=== PATIENT | male | born 1960 | race Caucasian/White ===

== ENCOUNTER 2016-05-18 06:34 | Emergency (ER) | payer BC ==
[2016-05-18] MEDS ORDERED: IOPAMIDOL-300 100 ML VIAL IVP ONE (08:01)
[2016-05-18] MEDS ORDERED: DEXAMETHASONE 10 MG/ML VIAL IVP STA (12:28)
[2016-05-18] MEDS ORDERED: DEXAMETHASONE 10 MG/ML VIAL ONE (12:30)
== END 2016-05-18 12:51 | disposition home or self-care (01) ==
DX: K70.10 Alcoholic hepatitis without ascites (principal); R05 Cough; M54.9 Dorsalgia, unspecified
CPT/HCPCS: 36415; 74177; 76705; 80053; 80074; 81001; 83690; 85025; 87086; 96374; 99284; Q9967

== ENCOUNTER 2016-05-26 08:58 | Outpatient (CLI) | payer BC | END 2016-05-26 08:59 | disposition home or self-care (01) | DX: G47.33 Obstructive sleep apnea (adult) (pediatric) (principal) ==

== ENCOUNTER 2016-07-04 09:49 | Outpatient (CLI) | payer OTHER, BC | END 2016-07-04 09:50 | disposition home or self-care (01) | DX: M19.011 Primary osteoarthritis, right shoulder (principal); M87.9 Osteonecrosis, unspecified; M62.511 Muscle wasting and atrophy, not elsewhere classified, right shoulder; M25.511 Pain in right shoulder; M75.100 Unspecified rotator cuff tear or rupture of unspecified shoulder, not specified as traumatic ==

== ENCOUNTER 2016-10-03 07:10 | Outpatient (CLI) | payer BC, OTHER ==
[2016-10-03] MEDS ORDERED: IOPAMIDOL-300 50 ML VIAL PO ONE (08:30)
[2016-10-03] MEDS ORDERED: IOPAMIDOL-300 100 ML VIAL IVP ONE (08:30)
--- NOTE | 2016-10-03 12:41 | CT Report ---
CT ABDOMEN AND PELVIS WITH CONTRAST: 10/03/2016 CLINICAL INDICATION: Jaundice, enlarged liver. TECHNIQUE: Axial CT images of the abdomen and pelvis were obtained with 100 mL Isovue-300 intravenou sly as well as oral contrast. In accordance with CT protocol optimization, one or more of the following dose reduction techniques w ere utilized for this exam: automated exposure control, adjustment of mA and/or KV based on patient size, or use of iterative reconstructive technique. COMPARISON: 05/18/2016 FINDINGS: The liver is enlarged and heterogeneous, with a nodular contour, compatible with cirrhosis . It measures 22 cm craniocaudal. The gallbladder is not dilated. There is recanalization of a col lateral vein in the anterior abdominal wall, which drains through the hypogastric into the right comm on femoral vein. No gastric varices are seen. No splenomegaly is present. The kidneys, spleen, moise creas, and adrenal glands are unremarkable. No bowel dilatation, free gas, or free fluid is present. No abdominal adenopathy is seen. Pelvis: The appendix is seen in the right lower quadrant, and is normal in caliber. Trace free flui d is present in the pelvis. No pelvic adenopathy is seen. Osseous structures demonstrate degenerative changes. IMPRESSION: CIRRHOSIS, WITH PORTAL HYPERTENSION. JOB #: [id number] EXT JOB #:[id number]
== END 2016-10-03 07:11 | disposition home or self-care (01) ==
LOC: DI 07:10
PROVIDERS: ATTEND Family Medicine
DX: K70.30 Alcoholic cirrhosis of liver without ascites (principal); K76.6 Portal hypertension
CPT/HCPCS: 74177; Q9967

== ENCOUNTER 2017-01-26 10:33 | Outpatient (CLI) | payer BC | END 2017-01-26 10:34 | disposition home or self-care (01) | LOC: LAB 10:33 | PROVIDERS: ATTEND Physician Assistant Medical | DX: K70.30 Alcoholic cirrhosis of liver without ascites (principal) | CPT/HCPCS: 36415; 82140 ==

== ENCOUNTER 2017-04-22 13:14 | Emergency (ER) | payer BC ==
[2017-04-22] MEDS ORDERED: HYDROmorphone 1 MG/ML SYRINGE IM STA (13:56)
[2017-04-22 15:10] LABS: CALCIUM 8.3 mg/dL (8.5-10.3); CREATININE 0.3 mg/dL (0.6-1.2); MAGNESIUM 1.8 mg/dL (1.7-2.8)
--- NOTE | 2017-04-22 15:16 | ED Physician Documentation ---
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 now with high MELD score and being placed on transplant list LLE pain 2 days ago and again today no injury pain to lat and posterior calf severe no redness or fever no CP or SOA Review of Systems Constitutional: denies: Fever Cardiac: denies: Chest pain / pressure Respiratory: denies: Dyspnea Musculoskeletal: reports: Extremity pain Endocrine: reports: Easy bruising / bleeding (INR 2+ 2/2 liver dz) Immunocompromised: denies: Immunocompromised PD PAST MEDICAL HISTORY - Past Medical History Past Medical History: Yes Cardiovascular: None Respiratory: Other Endocrine/Autoimmune: None GI: Cirrhosis, Other : Nocturia HEENT: None Psych: None Musculoskeletal: None Derm: None - Past Surgical History Past Surgical History: No General: Colonoscopy, Other - Present Medications Home Medications: Ambulatory Orders Medication Instructions Recorded Confirmed Furosemide 20 mg PO DAILY 04/22/17 04/22/17 Lactulose 30 ml PO TID 04/22/17 04/22/17 Ondansetron [Ondansetron Odt] 4 mg PO Q6HR PRN 04/22/17 04/22/17 Spironolactone 25 mg PO BID 04/22/17 04/22/17 oxyCODONE [Roxicodone] 5 mg PO Q4-6H #6 tablet 04/22/17 - Allergies Allergies/Adverse Reactions: Allergies Allergy/AdvReac Type Severity Reaction Status Date / Time No Known Drug Allergies Allergy Verified 05/18/16 06:41 - Social History Does the pt smoke?: No Smoking Status: Never smoker Does the pt drink ETOH?: No Does the pt have substance abuse?: No - Immunizations Immunizations are current?: No Immunizations: TDAP >10years/unknown - POLST Patient has POLST: No PD ED PE NORMAL - Vitals Vital signs reviewed: Yes - Neck Neck: Supple, no meningeal sign - Cardiac Cardiac: RRR - Respiratory Respiratory: No respiratory distress, Clear bilaterally - Extremities Extremities: Other (L calf slightly discolored/paler lateral aspect, extremely TTP even with light touch, no cord, no ankel or foot pain, strong pedal and ant tib pulses, foot warm, MSV intcatc, cmpt feel soft) Results - Vitals Vitals: Vital Signs - 24 hr 04/22/17 04/22/17 04/22/17 13:20 14:40 14:56 Temperature 36.7 C 36.8 C Heart Rate 89 72 70 Respiratory 18 15 18 Rate Blood Pressure 112/73 118/68 O2 Saturation 98 95 96 04/22/17 16:27 Temperature Heart Rate 88 Respiratory 16 Rate Blood Pressure 109/84 H O2 Saturation 98 Oxygen O2 Source Room air - Labs Labs: Laboratory Tests 04/22/17 14:45 Sodium 129 L Potassium 4.0 Chloride 101 Carbon Dioxide 23 Anion Gap 5.0 L BUN 8 Creatinine 0.3 L Estimated GFR (MDRD) 309 Glucose 111 H Calcium 8.3 L Magnesium 1.8 Total Creatine Kinase 89 PD MEDICAL DECISION MAKING - ED course ED course: does not look infected - not red or warm no subcut air on xray either not c/w ischemia as distal ankle and foot no pain strong pulses warm doubt cmpt syndrome and cmpts are soft to palpate and MSV to foot nl CK so doubt myositis and neg doppler rules out DVT given elev INR of 2.6 2/2 liver dz perhaps he has some hemaotma in the mm cauding pain after pain meds and work up rechecked pt, much better, nl color to sking, minimally TTP will dc with limited # pain meds, wrote a note to ride the transport cart at the airport as needed and PMD/ortho fup if not better Departure - Departure Disposition: 01 Home, Self Care Clinical Impression: Pain of lower extremity Qualifiers: Laterality: left Qualified Code(s): M79.605 - Pain in left leg Condition: Good Follow-Up: Sampson Dc MD [Primary Care Provider] - Prescriptions: oxyCODONE [Roxicodone] 5 mg PO Q4-6H #6 tablet Comments: Based on your history exam and test results it does not seem you have a venous or arterial blockage, an infection, or compartment syndrome. The pain could be from muscle spasm or perhaps you had some bleeding into your muscle because your INR is high from your liver disease And you are feeling better So I think it is safe for you to go see family for the holidays Recommend using an HUANG wrap, applying ice, and elevating the leg as often as possible. I also wrote you a note to use the transport cart at the airport Please follow up with Dr Dc when you return If you get worse while you are travelling go to an urgent care or ER Forms: Activity restrictions
--- NOTE | 2017-04-22 15:41 | Ultrasound Report ---
EXAM: LEFT LEG VENOUS DUPLEX: 04/22/2017 CLINICAL INDICATION: Severe pain and discoloration. TECHNIQUE: Real-time sonographic vascular imaging was performed by the loss control representative through the left lower extremity utilizing both color flow and Doppler spectral analysis. Multiple loss control representative static images were saved for review. FINDINGS: A left lower extremity venous sonogram is performed revealing the common femoral, superficial femoral, profunda femoris, and popliteal veins to be adequately visualized without intraluminal defects. There is normal venous compression, augmentation, phasicity, and spontaneity of venous flow. In the calf, the visualized more cephalad portions of posterior tibial and peroneal veins are grossly compressible, without filling defects. IMPRESSION: NO EVIDENCE OF DEEP VENOUS THROMBOSIS. MD MICHELE Flores/WILLIAM TD: 04/22/2017 15:34 MTDD
--- NOTE | 2017-04-22 16:27 | XRAY Preliminary Report ---
Exam: XR TIB/FIB LT IMPRESSION: Negative left tibia/fibula. [facility] SITE ID: [id number]
--- NOTE | 2017-04-22 16:29 | XRAY Report ---
EXAM: LEFT TIBIA/FIBULA RADIOGRAPHY EXAM DATE: 04/22/2017 04:21 PM. CLINICAL HISTORY: Severe pain. COMPARISON: None. TECHNIQUE: 2 views. FINDINGS: Bones: Normal. No fracture or bone lesion. Joints: The visualized knee and ankle joints are normal. No effusions. Soft Tissues: Normal. No soft tissue swelling. IMPRESSION: Negative left tibia/fibula. [facility] Referring Provider Line: [phone] SITE ID: [id number]
[2017-04-22 17:28] VITALS: BP 127/57
== END 2017-04-22 17:29 | disposition home or self-care (01) ==
LOC: ED 13:14
DX: M79.662 Pain in left lower leg (principal); K74.60 Unspecified cirrhosis of liver
CPT/HCPCS: 36415; 73590; 80048; 82550; 83735; 93971; 96372; 99283; J1170

== ENCOUNTER 2017-08-12 20:56 | Emergency (ER) | payer BC ==
--- NOTE | 2017-08-12 21:29 | ED Physician Documentation ---
PD HPI ABD PAIN - Stated complaint Stated Complaint: ABD PAIN - Chief complaint Chief Complaint: Abd Pain - History obtained from History obtained from: Patient, Family - History of Present Illness Timing - onset: How many days ago (2) Timing - details: Gradual onset, Still present Quality: Aching, Sharp Location: LUQ Worsened by: Palpation Associated symptoms: No: Nausea, Vomiting, Chest pain Recently seen: Emergency Dept - Additional information Additional information: Patient is a 56 year old male with a history of cirrhosis secondary to alcoholism. Patient was on the transplant list but relapsed and is currently in a sobriety period. patient was diagnosed about a week ago with pneumonia for which he was treated with doxycycline. patient has continued to cough. Family reports that for the last few days he has had left upper quadrant pain and is worried that it might be his spleen. Review of Systems Constitutional: denies: Fever, Chills Eyes: reports: Reviewed and negative Ears: reports: Reviewed and negative Nose: reports: Reviewed and negative Throat: reports: Reviewed and negative Cardiac: denies: Chest pain / pressure, Palpitations Respiratory: reports: Dyspnea, Cough GI: reports: Abdominal Pain. denies: Nausea, Vomiting, Diarrhea : denies: Dysuria, Frequency Skin: reports: Rash Musculoskeletal: denies: Neck pain, Back pain Neurologic: reports: Generalized weakness. denies: Focal weakness, Numbness PD PAST MEDICAL HISTORY - Past Medical History Cardiovascular: None Respiratory: Other Endocrine/Autoimmune: None GI: Cirrhosis, Other : Nocturia HEENT: None Psych: None Musculoskeletal: None Derm: None - Past Surgical History Past Surgical History: No General: Colonoscopy, Other - Present Medications Home Medications: Ambulatory Orders Medication Instructions Recorded Confirmed Furosemide 20 mg PO DAILY 04/22/17 04/22/17 Lactulose 30 ml PO TID 04/22/17 04/22/17 Ondansetron [Ondansetron Odt] 4 mg PO Q6HR PRN 04/22/17 04/22/17 Spironolactone 25 mg PO BID 04/22/17 04/22/17 oxyCODONE [Roxicodone] 5 mg PO Q4-6H #6 tablet 04/22/17 Benzonatate [Tessalon] 100 mg PO TID #20 capsule 08/12/17 Lidocaine Patch 5% [Lidoderm Patch] 1 each TOP DAILY #10 patch 08/12/17 - Allergies Allergies/Adverse Reactions: Allergies Allergy/AdvReac Type Severity Reaction Status Date / Time No Known Drug Allergies Allergy Verified 05/18/16 06:41 - Social History Does the pt smoke?: No Smoking Status: Never smoker Does the pt drink ETOH?: No Does the pt have substance abuse?: No - Immunizations Immunizations are current?: No Immunizations: TDAP >10years/unknown - POLST Patient has POLST: No PD ED PE NORMAL - Vitals Vital signs reviewed: Yes - General General: Alert and oriented X 3 - HEENT HEENT: Atraumatic - Cardiac Cardiac: RRR, No murmur - Derm Derm: No rash - Neuro Neuro: Alert and oriented X 3, No motor deficit, Normal speech Eye Opening: Spontaneous - Psych Psych: Normal mood PD ED PE EXPANDED - HEENT HEENT: Dry mucous membranes - Eyes Eyes: Scleral icterus - Cardiac Cardiac: JVD present - Abdomen Abdomen: Tender to palpation, LUQ. No: Rebound, Guarding - Extremities Extremities: Right foot (petechia on bilateral lower extremities), Left foot Results - Vitals Vitals: Vital Signs - 24 hr 08/12/17 08/12/17 08/12/17 21:04 22:17 22:46 Temperature 37.1 C Heart Rate 88 82 88 Respiratory 20 18 18 Rate Blood Pressure 133/74 H 126/69 124/70 O2 Saturation 98 97 98 Oxygen O2 Source Room air - Labs Labs: Laboratory Tests 08/12/17 08/12/17 08/12/17 21:22 21:22 21:56 WBC 6.8 RBC 3.01 L Hgb 11.3 L Hct 32.8 L MCV 108.9 H MCH 37.6 H MCHC 34.5 RDW 14.7 Plt Count 104 L MPV 7.1 L Neut # 3.8 Lymph # 1.6 [place] # 1.0 Eos # 0.2 Baso # 0.1 Absolute Nucleated RBC 0.00 Nucleated RBC % 0.0 Platelet Estimate NORMAL (130-450,000) Platelet Morphology NORMAL APPEARANCE PT INR APTT Sodium 134 L Potassium 3.8 Chloride 98 L Carbon Dioxide 29 Anion Gap 7.0 BUN 6 Creatinine 0.7 Estimated GFR (MDRD) 116 Glucose 116 H Lactic Acid 2.7 H Calcium 8.3 L Total Bilirubin 6.3 H Direct Bilirubin 2.4 H AST 78 H ALT 32 Alkaline Phosphatase 197 H Total Protein 6.6 L Albumin 2.7 L Globulin 3.9 Albumin/Globulin Ratio 0.7 L Lipase 18 L 08/12/17 21:56 WBC RBC Hgb Hct MCV MCH MCHC RDW Plt Count MPV Neut # Lymph # [place] # Eos # Baso # Absolute Nucleated RBC Nucleated RBC % Platelet Estimate Platelet Morphology PT 26.8 H INR 2.5 H APTT 51.2 H Sodium Potassium Chloride Carbon Dioxide Anion Gap BUN Creatinine Estimated GFR (MDRD) Glucose Lactic Acid Calcium Total Bilirubin Direct Bilirubin AST ALT Alkaline Phosphatase Total Protein Albumin Globulin Albumin/Globulin Ratio Lipase - Rads (name of study) ct abd pelvis Radiology: Final report received, See rad report (effusion, no infectious source , no obstruction) PD MEDICAL DECISION MAKING - ED course Complexity details: reviewed old records, reviewed results, re-evaluated patient , considered differential, d/w patient, d/w family ED course: Patient was seen and examined at bedside. IV access was gained and labs were drawn. Imaging was ordered. Patient stated that he did not want any pain medication at this time. Patient's labs were not too far patient's baseline and the results were reviewed with the patient's . patient's meld score was 26. Patient's score has ranged anywhere from 24-[address] abdomen and pelvis showed ascites but no other acute changes. Family was aware of the ascites. while SBP was considered was unlikely. Patient had no elevated wbc, no fever and the pain was localized to the left upper quadrant and was only present with the patient coughed. Patient was treated with tessalon and lidoderm patch. Patient required no further work up and was stable for discharge with outpatient follow up. Departure - Departure Disposition: 01 Home, Self Care Clinical Impression: Strain of abdominal muscle Condition: Good Instructions: ED Strain Abdominal Muscle Follow-Up: Sampson Dc MD [Primary Care Provider] - Prescriptions: Benzonatate [Tessalon] 100 mg PO TID #20 capsule Lidocaine Patch 5% [Lidoderm Patch] 1 each TOP DAILY #10 patch Comments: Your diagnostics today, although not normal are not too far off your baseline. Your pain is likely secondary from all of the coughing. You have been prescribed a cough medicine and lidoderm patches to help with the pain. You should follow up with doctor as planned. You can return to the emergency department for fevers, chills, vomiting, new worseing or uncontrollable symptoms. Discharge Date/Time: 08/12/17 23:07
[2017-08-12 21:48] LABS: ALBUMIN 2.7 g/dL (3.2-5.5); ALBUMIN/GLOBULIN RATIO 0.7 (1.0-2.2); BILIRUBIN,DIRECT 2.4 mg/dL (0.1-0.5); BILIRUBIN,TOTAL 6.3 mg/dL (0.2-1.0); CALCIUM 8.3 mg/dL (8.5-10.3); CREATININE 0.7 mg/dL (0.6-1.2); TOTAL PROTEIN 6.6 g/dL (6.7-8.2)
[2017-08-12] MEDS ORDERED: IOPAMIDOL-300 100 ML VIAL ONE (21:49)
[2017-08-12] MEDS ORDERED: SODIUM CHLORIDE 0.9% 1,000 ML IV ONE (22:04)
[2017-08-12 22:10] LABS: INR 2.5 (0.8-1.2); PT - PROTHROMBIN TIME 26.8 secs (9.9-12.6)
[2017-08-12] MEDS ORDERED: IOPAMIDOL-300 100 ML VIAL IVP ONE (22:14)
--- NOTE | 2017-08-12 22:14 | XRAY Report ---
EXAM: CHEST RADIOGRAPHY EXAM DATE: 08/12/2017 10:05 PM. CLINICAL HISTORY: Cough, recent pneumonia. COMPARISON: None. TECHNIQUE: 2 views. FINDINGS: Lungs/Pleura: No focal opacities evident. No pleural effusion. No pneumothorax. Normal volumes. Mediastinum: Heart and mediastinal contours are unremarkable. Other: None. IMPRESSION: Normal 2-view chest radiography. [facility] Referring Provider Line: [phone] SITE ID: [id number]
[2017-08-12 22:17] LABS: BASOPHILS # (AUTO) 0.1 10^3/uL (0.0-0.1); BASOPHILS % (AUTO) 1.3 %; EOSINOPHILS # (AUTO) 0.2 10^3/uL (0.0-0.7); EOSINOPHILS % (AUTO) 3.6 %; HGB - HEMOGLOBIN 11.3 g/dL (14.0-18.0); LYMPHOCYTES # (AUTO) 1.6 10^3/uL (1.5-3.5); LYMPHOCYTES % (AUTO) 24.3 %; MEAN CORPUSCULAR HEMOGLOBIN 37.6 pg (27.0-31.0); MEAN CORPUSCULAR HGB CONC 34.5 g/dL (32.0-36.0); MEAN CORPUSCULAR VOLUME 108.9 fL (80.0-94.0); MEAN PLATELET VOLUME 7.1 fL (7.4-11.4); NEUTROPHILS # (AUTO) 3.8 10^3/uL (1.5-6.6); NEUTROPHILS % (AUTO) 56.8 %; PLT - PLATELET COUNT 104 10^3/uL (130-450); RED BLOOD COUNT 3.01 10^6/uL (4.70-6.10); RED CELL DISTRIBUTION WIDTH 14.7 % (12.0-15.0); WHITE BLOOD COUNT 6.8 x10^3/uL (4.8-10.8)
[2017-08-12 22:18] LABS: PLATELET ESTIMATE, MANUAL NORMAL (130-450,000) (NORMAL); PLATELET MORPHOLOGY NORMAL APPEARANCE (NORMAL)
--- NOTE | 2017-08-12 22:31 | CT Preliminary Report ---
Exam: CT ABDOMEN/PELVIS W/ IMPRESSION: 1. New moderate amount of ascites in the abdomen and pelvis. 2. Liver cirrhosis. Varices. 3. Tiny right pleural effusion. 4. Otherwise, see above. [facility] SITE ID: [id number]
--- NOTE | 2017-08-12 22:36 | CT Report ---
EXAM: CT ABDOMEN AND PELVIS EXAM DATE: 08/12/2017 10:15 PM. CLINICAL HISTORY: Left upper quadrant pain. COMPARISONS: CT abdomen and pelvis 11/02/2016. TECHNIQUE: Routine helical CT imaging was performed through the abdomen and pelvis. IV contrast: 100 mL Isovue 300. Enteric contrast: No. Reconstructions: Coronal and sagittal. In accordance with CT protocol optimization, one or more of the following dose reduction techniques w ere utilized for this exam: automated exposure control, adjustment of mA and/or KV based on patient s ize, or use of iterative reconstructive technique. FINDINGS: Mild bibasilar probable atelectasis. Very small right pleural effusion is new. Irregular contour of the liver especially at the left hepatic lobe consistent with cirrhosis. New hyp odensity too small to fully characterize seen at the liver dome measuring 6 mm, appears new. There is a new low-density mass at the lateral segment left hepatic lobe, low Hounsfield units of 10 with arlette earance most suggestive for a cyst, measures 1.7 cm and this is new compared to the prior. A few othe r small nonspecific low densities are seen in the liver, too small to fully characterize. Mild diffus e heterogeneous liver echotexture. Enlarged left portal vein and recanalized umbilical vein with ante rior abdominal varices. The gallbladder is contracted. No bile duct dilatation. Pancreas: Atrophic. Spleen: Unremarkable. Adrenals: Unremarkable. Kidneys: Unremarkable. Bowel: New moderate amount of ascites in the abdomen and pelvis. No evidence for bowel obstruction. A nterior abdominal and abdominal wall varices again noted. Pelvis: The bladder and remaining pelvic organs appear unremarkable. Bones: No acute bone findings. IMPRESSION: 1. New moderate amount of ascites in the abdomen and pelvis. 2. Liver cirrhosis. Varices. 3. Tiny right pleural effusion. 4. Otherwise, see above. [facility] Referring Provider Line: [phone] SITE ID: [id number]
[2017-08-12] MEDS ORDERED: BENZONATATE 100 MG CAPSULE PO STA (22:38)
[2017-08-12 22:47] VITALS: BP 124/70
[2017-08-12] MEDS ORDERED: LIDOCAINE PATCH 5% TOP STA (22:52)
== END 2017-08-12 23:07 | disposition home or self-care (01) ==
LOC: ED 20:56
DX: S39.011A Strain of muscle, fascia and tendon of abdomen, initial encounter (principal); X58.XXXA Exposure to other specified factors, initial encounter; R05 Cough
CPT/HCPCS: 36415; 71046; 74177; 80053; 82248; 83605; 83690; 85025; 85610; 85730; 87040; 96360; 99283; A9270; Q9967

== ENCOUNTER 2017-09-25 09:13 | Outpatient (CLI) | payer BC ==
--- NOTE | 2017-09-25 10:11 | XRAY Report ---
TWO VIEW CHEST: 09/25/2017 CLINICAL INDICATION: Cough. COMPARISON: 08/12/2017. FINDINGS: Frontal and lateral views of the chest demonstrate a normal cardiac silhouette. The lungs remain clear. No effusion or pneumothorax is present. IMPRESSION: NORMAL CHEST. NO SIGNIFICANT INTERVAL CHANGE FROM 08/12/2017. TD: 09/25/2017 09:56
[2017-09-25 11:35] LABS: INR 2.3 (0.8-1.2)
[2017-09-25 11:41] LABS: CALCIUM 8.4 mg/dL (8.5-10.3); CREATININE 0.6 mg/dL (0.6-1.2)
[2017-09-25 11:52] LABS: BILIRUBIN,URINE NEGATIVE (NEGATIVE); GLUCOSE, URINE (UA) NEGATIVE (NEGATIVE); KETONES,URINE (UA) NEGATIVE (NEGATIVE); LEUKOCYTE ESTERASE, URINE NEGATIVE (NEGATIVE); NITRITE,URINE NEGATIVE (NEGATIVE); OCCULT BLOOD,URINE SMALL (NEGATIVE); PH,URINE 5.5 PH (5.0-7.5); PROTEIN,URINE NEGATIVE (NEGATIVE); UROBILINOGEN,URINE 0.2 (NORMAL) E.U./dL (NORMAL)
[2017-09-25 11:54] LABS: CLARITY,URINE CLEAR (CLEAR)
== END 2017-09-25 09:14 | disposition home or self-care (01) ==
LOC: DI 09:13
PROVIDERS: ATTEND Specialist
DX: J18.9 Pneumonia, unspecified organism (principal); K70.30 Alcoholic cirrhosis of liver without ascites; K72.90 Hepatic failure, unspecified without coma
CPT/HCPCS: 36415; 71046; 80048; 81003; 82140; 85610; 85730

== ENCOUNTER 2017-09-29 08:04 | Outpatient (CLI) | payer BC | END 2017-09-29 08:05 | disposition critical access hospital (66) | LOC: EMS 08:04 | PROVIDERS: ATTEND Surgery | DX: R52 Pain, unspecified (principal); R06.00 Dyspnea, unspecified; R05 Cough | CPT/HCPCS: A0425; A0429 ==

== ENCOUNTER 2017-09-29 08:18 | Emergency (ER) | payer BC ==
[2017-09-29] MEDS ORDERED: MORPHINE 2 MG/ML SYRINGE IVP STA ×2 (09:05→10:25)
--- NOTE | 2017-09-29 09:14 | ED Physician Documentation ---
History of Present Illness - Stated complaint Stated Complaint: PAIN - Chief complaint Chief Complaint: General - Additonal information Additional information: hx from pt and 56 male prior EtOH now with cirrhosis and end stage liver dz can go on transplant list in December of narcotic and EtOH sobriety and counseling has chronic abd pain and ascites now with fluid in lungs and edema and a cough which is worsening the abd pain felt cold last night but no fevers reported his PMD recently increased his spironolactone and lasix he does not want to be on the transplant list benny more he wants his pain controlled and to be on hospice he is DNR told nurse pt has been voicing suicidal ideations Review of Systems Constitutional: reports: Chills. denies: Fever Cardiac: denies: Chest pain / pressure Respiratory: reports: Dyspnea, Cough GI: reports: Abdominal Pain. denies: Nausea, Vomiting Musculoskeletal: reports: Extremity swelling Neurologic: reports: Generalized weakness Endocrine: reports: Easy bruising / bleeding (INR high and last plt count 88) PD PAST MEDICAL HISTORY - Past Medical History Cardiovascular: None Respiratory: Other Endocrine/Autoimmune: None GI: Cirrhosis, Other : Nocturia HEENT: None Psych: Depression, Other Musculoskeletal: None Derm: None Other Past Medical History: 09/29/17 - feels SI - Past Surgical History Past Surgical History: No General: Colonoscopy, Other - Present Medications Home Medications: Ambulatory Orders Medication Instructions Recorded Confirmed Furosemide 20 mg PO DAILY 04/22/17 04/22/17 Lactulose 30 ml PO TID 04/22/17 04/22/17 Ondansetron [Ondansetron Odt] 4 mg PO Q6HR PRN 04/22/17 04/22/17 Spironolactone 25 mg PO BID 04/22/17 04/22/17 oxyCODONE [Roxicodone] 5 mg PO Q4-6H #6 tablet 04/22/17 Benzonatate [Tessalon] 100 mg PO TID #20 capsule 08/12/17 Lidocaine Patch 5% [Lidoderm Patch] 1 each TOP DAILY #10 patch 08/12/17 Doxycycline Hyclate 100 mg PO BID #20 capsule 09/29/17 guaiFENesin/DEXTROMETHORPHAN 10 ml PO Q6H PRN #120 ml 09/29/17 [Robitussin Dm] oxyCODONE [Roxicodone] 5 mg PO Q6H PRN #20 tablet 09/29/17 - Allergies Allergies/Adverse Reactions: Allergies Allergy/AdvReac Type Severity Reaction Status Date / Time No Known Drug Allergies Allergy Verified 05/18/16 06:41 - Social History Does the pt smoke?: No Smoking Status: Never smoker Does the pt drink ETOH?: No Does the pt have substance abuse?: No - Immunizations Immunizations are current?: No Immunizations: TDAP >10years/unknown - POLST Patient has POLST: No PD ED PE NORMAL - Vitals Vital signs reviewed: Yes - HEENT HEENT: Atraumatic - Neck Neck: Supple, no meningeal sign - Cardiac Cardiac: RRR - Respiratory Respiratory: No respiratory distress, Clear bilaterally - Abdomen Abdomen: Soft, Other (mod ascites, dilated sup veins, TTP asha upper quad but not rest of abd) - Derm Derm: Other (jaundice, sallow) - Extremities Extremities: Other (asha edema) - Neuro Neuro: Alert and oriented X 3 Results - Vitals Vitals: Vital Signs - 24 hr 09/29/17 09/29/17 09/29/17 08:23 10:25 12:39 Temperature 37.0 C 36.4 C L Heart Rate 90 86 85 Respiratory 22 12 14 Rate Blood Pressure 122/86 H 132/79 H 129/66 O2 Saturation 97 95 97 Oxygen O2 Source Room air - Labs Labs: Laboratory Tests 09/29/17 09/29/17 09/29/17 09:28 09:28 09:28 WBC 7.8 RBC 2.88 L Hgb 11.4 L Hct 31.2 L MCV 108.5 H MCH 39.7 H MCHC 36.6 H RDW 15.1 H Plt Count 121 L MPV 6.8 L Neut # 5.3 Lymph # 1.2 L [place] # 1.1 H Eos # 0.1 Baso # 0.1 Absolute Nucleated RBC 0.00 Nucleated RBC % 0.0 Manual Slide Review Indicated Platelet Estimate NORMAL (130-450,000) Platelet Morphology NORMAL APPEARANCE RBC Morph Micro Appear 1+ POIKILOCYTOSIS PT 27.1 H INR 2.5 H APTT 49.7 H Sodium 126 L Potassium 4.0 Chloride 92 L Carbon Dioxide 25 Anion Gap 9.0 BUN 13 Creatinine 0.7 Estimated GFR (MDRD) 116 Glucose 96 Calcium 8.4 L Total Bilirubin 9.5 H AST 95 H ALT 42 Alkaline Phosphatase 206 H Ammonia B-Natriuretic Peptide Total Protein 6.8 Albumin 2.6 L Globulin 4.2 Albumin/Globulin Ratio 0.6 L Lipase 30 09/29/17 09/29/17 09:28 09:28 WBC RBC Hgb Hct MCV MCH MCHC RDW Plt Count MPV Neut # Lymph # [place] # Eos # Baso # Absolute Nucleated RBC Nucleated RBC % Manual Slide Review Platelet Estimate Platelet Morphology RBC Morph Micro Appear PT INR APTT Sodium Potassium Chloride Carbon Dioxide Anion Gap BUN Creatinine Estimated GFR (MDRD) Glucose Calcium Total Bilirubin AST ALT Alkaline Phosphatase Ammonia 37.3 H B-Natriuretic Peptide 80 Total Protein Albumin Globulin Albumin/Globulin Ratio Lipase - Rads (name of study) CXR Radiology: See rad report (R basilar pna) PD MEDICAL DECISION MAKING - ED course ED course: pt with ascites and abd pain - but abd pain is not new - hurts more with coughing but not new, and not diffusely TTP or peritoneal, afebrile- doubt SBP - not taut ascites causing resp impairment - give elev INR and thrombocytopenia feel risk of paracentesis outweighs benefit seen by SW to coordinate with hospice I spoke to PMD Dr Traylor will dc with ab and pain meds pt and understand results and plan going forward Departure - Departure Disposition: 01 Home, Self Care Clinical Impression: End stage liver disease Pneumonia Qualifiers: Pneumonia type: due to unspecified organism Laterality: right Lung location: lower lobe of lung Qualified Code(s): J18.1 - Lobar pneumonia, unspecified organism Condition: Good Instructions: ED Pneumonia Adult Prescriptions: Doxycycline Hyclate 100 mg PO BID #20 capsule guaiFENesin/DEXTROMETHORPHAN [Robitussin Dm] 10 ml PO Q6H PRN #120 ml PRN Reason: Cough oxyCODONE [Roxicodone] 5 mg PO Q6H PRN #20 tablet PRN Reason: Pain Comments: Your labs are similar to prior results - your liver function is a bit worse. The xray still shows pneumonia and you are still coughing so I have prescribed more antibiotics and cough medications I have spoken to Dr Traylor about getting you on hospice and the social contact worker provided you information. I have prescibed a few days of pain medication as well - further prescriptions will need to come from Dr Traylor
[2017-09-29 09:34] LABS: BASOPHILS # (AUTO) 0.1 10^3/uL (0.0-0.1); BASOPHILS % (AUTO) 0.9 %; EOSINOPHILS # (AUTO) 0.1 10^3/uL (0.0-0.7); EOSINOPHILS % (AUTO) 1.4 %; HGB - HEMOGLOBIN 11.4 g/dL (14.0-18.0); LYMPHOCYTES # (AUTO) 1.2 10^3/uL (1.5-3.5); LYMPHOCYTES % (AUTO) 15.5 %; MEAN CORPUSCULAR HEMOGLOBIN 39.7 pg (27.0-31.0); MEAN CORPUSCULAR HGB CONC 36.6 g/dL (32.0-36.0); MEAN CORPUSCULAR VOLUME 108.5 fL (80.0-94.0); MEAN PLATELET VOLUME 6.8 fL (7.4-11.4); MONOCYTES # (AUTO) 1.1 10^3/uL (0.0-1.0); MONOCYTES % (AUTO) 14.2 %; NEUTROPHILS # (AUTO) 5.3 10^3/uL (1.5-6.6); PLT - PLATELET COUNT 121 10^3/uL (130-450); RED BLOOD COUNT 2.88 10^6/uL (4.70-6.10); RED CELL DISTRIBUTION WIDTH 15.1 % (12.0-15.0); WHITE BLOOD COUNT 7.8 x10^3/uL (4.8-10.8)
[2017-09-29 09:43] LABS: INR 2.5 (0.8-1.2); PT - PROTHROMBIN TIME 27.1 secs (9.9-12.6)
[2017-09-29 09:50] LABS: ALBUMIN 2.6 g/dL (3.2-5.5); ALBUMIN/GLOBULIN RATIO 0.6 (1.0-2.2); BILIRUBIN,TOTAL 9.5 mg/dL (0.2-1.0); CALCIUM 8.4 mg/dL (8.5-10.3); CREATININE 0.7 mg/dL (0.6-1.2); TOTAL PROTEIN 6.8 g/dL (6.7-8.2)
[2017-09-29 09:55] LABS: PLATELET ESTIMATE, MANUAL NORMAL (130-450,000) (NORMAL); PLATELET MORPHOLOGY NORMAL APPEARANCE (NORMAL)
[2017-09-29 09:56] LABS: RBC MORPHOLOGY (MULTIPLE) 1+ POIKILOCYTOSIS (NORMAL)
[2017-09-29] MEDS ORDERED: ONDANSETRON 4 MG/2 ML VIAL IVP STA (10:25)
--- NOTE | 2017-09-29 10:39 | XRAY Report ---
EXAM: CHEST RADIOGRAPHY EXAM DATE: 09/29/2017 10:10 AM. CLINICAL HISTORY: Cough soa. COMPARISON: 09/25/2017. TECHNIQUE: 2 views. FINDINGS: Lungs/Pleura: Right basilar infiltrate/atelectasis No pleural effusion. No pneumothorax. Decreased heri ng volumes. Mediastinum: Heart and mediastinal contours are unremarkable. Other: None. IMPRESSION: Right basal infiltrate/atelectasis may be related to low lung volumes [facility] Referring Provider Line: [phone] SITE ID: [id number]
--- NOTE | 2017-09-29 10:39 | XRAY Preliminary Report ---
Exam: XR CHEST 2 VIEW X-RAY IMPRESSION: Right basal infiltrate/atelectasis may be related to low lung volumes [facility] SITE ID: [id number]
[2017-09-29 13:56] VITALS: BP 126/83
== END 2017-09-29 14:00 | disposition home or self-care (01) ==
LOC: EDUNIT# → ED 08:18
DX: K72.90 Hepatic failure, unspecified without coma (principal); J18.9 Pneumonia, unspecified organism; K74.60 Unspecified cirrhosis of liver; R18.8 Other ascites; Z66 Do not resuscitate
CPT/HCPCS: 36415; 71046; 80053; 82140; 83690; 83880; 85025; 85610; 85730; 96374; 96376; 99284; J2270